=== PATIENT | female | born 1965 | race Caucasian/White ===

== ENCOUNTER 2016-06-26 19:44 | Emergency (ER) | payer OTHER | END 2016-06-26 20:15 | disposition home or self-care (01) | LOC: ER 19:44 | DX: S40.021A Contusion of right upper arm, initial encounter (principal); S80.212A Abrasion, left knee, initial encounter; S50.312A Abrasion of left elbow, initial encounter; G43.909 Migraine, unspecified, not intractable, without status migrainosus; Z90.710 Acquired absence of both cervix and uterus; Z23 Encounter for immunization; Z88.8 Allergy status to other drugs, medicaments and biological substances; W01.0XXA Fall on same level from slipping, tripping and stumbling without subsequent striking against object, initial encounter | CPT/HCPCS: 90471 ==